=== PATIENT | female | born 1955 | race Caucasian/White ===

== ENCOUNTER 2019-01-19 16:19 | Observation (INO) ==
--- NOTE | 2019-01-19 17:12 | Emergency Department Note ---
Disposition Clinical Impression: Hypertensive urgency Disposition: Admitted As Inpatient Condition: Fair Referrals: Ross Dorsey MD [Primary Care Provider] - Forms: ED Satisfaction Letter Time of Disposition: 20:18 General Adult HPI - General Chief complaint: ED Neuro Symptoms/Deficit Stated complaint: HTN, migraine, face and arm numbness Time Seen by Provider: 01/19/19 16:53 Source: patient Limitations: no limitations - History of Present Illness HPI Narrative: Ms. Hodges is 63-year-old female with past medical history of hypothyroidism, hypertension, seasonal allergy who presented to ED complaining of left-sided headache that onset yesterday with photophobia. She has previous history of migraines and has not had a migraine in years. This morning her blood pressure was 130/90 and later in the afternoon she started having neuropathy of her entire face as well as right arm and stabbing pain to her scapula. She states that her blood pressure at work was 190/101. For the headache she took ibupro fen without any relief. She also reports her blood pressure is normally within prior to today and recently has been under a lot of stress at work and believes her blood pressure might be elevated due to that. She denies any chest pain or shortness of breath at this moment or at the time of these symptoms. Currently she does not have any neuropathy or pain to her scapula and it is resolved. She does continue to have right-sided headache. She denies any blurry vision associated with the headache. She denies fever, chills, nausea, emesis, abdominal pain, back pain, lower extremity edema or difficulty with gait. Pain Scale: 2 - Related Data Allergies Allergy/AdvReac Type Severity Reaction Status Date / Time codeine Allergy Mild Hives Verified 01/19/19 20:11 latex Allergy Mild Hives Verified 01/19/19 20:11 Constitutional: Denies: fever, chills, weakness Eyes: Denies: eye pain, vision change ENT ED: Denies: ear pain, throat pain, congestion, dysphagia Cardiovascular: Denies: chest pain, palpitations, dyspnea on exertion, orthopnea Respiratory: Denies: cough, dyspnea, wheezes Gastrointestinal: Denies: abdominal pain, nausea, vomiting Genitourinary: Denies: dysuria, frequency, hematuria Musculoskeletal: Denies: back pain Integumentary: Denies: rash, abrasion, lesions Neurological: Reports: headache (left sided), numbness (of face), paresthesias (right arm). Denies: abnormal gait, vertigo Past Medical History - Past Medical History Medical history: Reports: asthma, hyperlipidemia, hypertension Psychiatric history: Reports: no psych history - Social History Smoking Status: Former smoker Smokeless Tobacco Status: No Alcohol use: Reports: none Drug use: Reports: none Physical Exam - General Limitations: no limitations General appearance: alert, in no apparent distress - Head Head exam: atraumatic, normocephalic - Eye Eye exam: Present: normal appearance, EOMI. Absent: scleral icterus, conjunctival injection - ENT ENT exam: normal exam, normal oropharynx, mucous membranes moist - Neck Neck exam: Present: normal inspection, full ROM, trachea midline - Chest Chest inspection: Present: normal inspection, symmetric chest wall rise. Absent: tenderness - Respiratory Respiratory exam: Present: normal lung sounds bilaterally. Absent: respiratory distress, wheezes - Cardiovascular Cardiovascular exam: Present: regular rate, normal rhythm, +S1, +S2 - Abdominal Exam Abdominal exam: Present: soft, Non-Tender, normal bowel sounds. Absent: distention, guarding, rigidity - Extremities Exam Extremities exam: Present: normal inspection, full ROM. Absent: tenderness - Back Exam Back exam: Present: normal inspection, full ROM, other (no scapular tenderness ). Absent: tenderness - Neurological Exam Neurological exam: Present: alert, oriented X3, CN II-XII intact. Absent: motor sensory deficit - Psychiatric Psychiatric exam: Present: normal affect, anxious - Skin Skin exam: Present: warm, dry, intact Course - Reevaluation(s) Reevaluation #1: Continued to have elevated blood pressure subsequently received enalapril. Denies any chest pain. Neuropathy has resolved. She will be admitted to the hospital for further workup as she continues to have hypertensive urgency additionally may require further cardiac workup. Time: 19:57 Vital Signs Temperature 98.1 F 01/19/19 16:38 Pulse Rate 69 01/19/19 16:38 Respiratory Rate 18 01/19/19 16:38 Blood Pressure 219/99 01/19/19 16:38 O2 Sat by Pulse Oximetry 98 01/19/19 16:38 Temperature 98.1 F 01/19/19 16:38 Pulse Rate 67 01/19/19 19:40 Respiratory Rate 18 01/19/19 19:40 Blood Pressure 182/96 01/19/19 19:40 O2 Sat by Pulse Oximetry 100 01/19/19 19:40 Oxygen Delivery Oxygen Delivery Room Air Medical Decision Making - Lab Data Result diagrams: 01/19/19 17:10 01/19/19 17:10 Lab Results 01/19/19 01/19/19 Range/Units 17:10 17:10 WBC 8.6 (4.3-11.1) K/mcL RBC 5.39 H (3.82-4.97) M/mcL Hgb 15.7 H (11.5-15.4) g/dL Hct 47.8 H (35.3-44.9) % MCV 88.7 (83.0-100.0) fL MCH 29.1 (28.0-33.3) pg MCHC 32.8 (31.6-35.5) g/dL RDW 12.3 (11.5-14.5) % Plt Count 246 (140-400) K/mcL MPV 10.8 (9.4-12.4) fL Immature Gran % 0.2 (0-4) % Seg Neutrophils % 49.0 % Lymphocytes % 38.2 % Monocytes % 8.4 % Eosinophils % 3.7 % Basophils % 0.5 % Neutrophils # 4.2 (1.6-8.9) K/mcL Lymphocytes # 3.3 (0.6-4.6) K/mcL Monocytes # 0.7 (0.0-1.3) K/mcL Eosinophils # 0.3 (0.0-0.6) K/mcL Basophils # 0.0 (0.0-0.2) K/mcL Sodium 137 (136-145) mEq/L Potassium 3.4 L (3.5-5.1) mEq/L Chloride 104 (98-107) mEq/L Carbon Dioxide 25 (23-29) mEq/L BUN 14 (8-23) mg/dL Creatinine 0.79 (0.60-1.20) mg/dL Est GFR ( Amer) > 60 (> 60) Est GFR (Non-Af Amer) > 60 (> 60) BUN/Creatinine Ratio 18 (6-26) Glucose 93 (70-105) mg/dL Calculated Osmolality 284 (280-300) Calcium 9.5 (8.6-10.3) mg/dL Magnesium 2.1 (1.6-2.6) mg/dL Troponin I < 0.03 (< 0.04) ng/mL
[2019-01-19 17:36] LABS: Basophils % 0.5 %; Eosinophils # 0.3 K/mcL (0.0-0.6); Eosinophils % 3.7 %; Hematocrit 47.8 % (35.3-44.9); Hemoglobin 15.7 g/dL (11.5-15.4); Immature Granulocytes % 0.2 % (0-4); Lymphocytes # 3.3 K/mcL (0.6-4.6); Lymphocytes % 38.2 %; Mean Corpuscular HGB Conc 32.8 g/dL (31.6-35.5); Mean Corpuscular Hemoglobin 29.1 pg (28.0-33.3); Mean Corpuscular Volume 88.7 fL (83.0-100.0); Mean Platelet Volume 10.8 fL (9.4-12.4); Monocytes # 0.7 K/mcL (0.0-1.3); Monocytes % 8.4 %; Neutrophils # 4.2 K/mcL (1.6-8.9); Platelet Count 246 K/mcL (140-400); Red Blood Count 5.39 M/mcL (3.82-4.97); Red Cell Distribution Width 12.3 % (11.5-14.5); White Blood Count 8.6 K/mcL (4.3-11.1)
[2019-01-19 17:57] LABS: BUN/Creatinine Ratio 18 (6-26); Blood Urea Nitrogen 14 mg/dL (8-23); Calcium 9.5 mg/dL (8.6-10.3); Carbon Dioxide 25 mEq/L (23-29); Chloride 104 mEq/L (98-107); Glucose 93 mg/dL (70-105); Magnesium 2.1 mg/dL (1.6-2.6); Osmolality,Calculated 284 (280-300); Potassium 3.4 mEq/L (3.5-5.1); Sodium 137 mEq/L (136-145); eGFR For African Americans > 60 (> 60); eGFR For Non-African Americans > 60 (> 60)
[2019-01-19 17:58] LABS: Troponin I < 0.03 ng/mL (< 0.04)
[2019-01-19] MEDS ORDERED: Prochlorperazine 10 MG/2 ML VIAL IVP ONE (19:26)
[2019-01-19] MEDS ORDERED: Aspirin 325 MG TABLET PO ONE (19:38)
--- NOTE | 2019-01-19 20:15 | Emergency Department Note ---
Disposition Clinical Impression: Hypertensive urgency, Headache, Chest pain Disposition: Admitted As Inpatient Condition: Fair Referrals: Ross Dorsey MD [Primary Care Provider] - Forms: ED Satisfaction Letter Time of Disposition: 20:15 General Adult HPI - General Chief complaint: ED Neuro Symptoms/Deficit Stated complaint: HTN, migraine, face and arm numbness Time Seen by Provider: 01/19/19 16:53 Source: patient Limitations: no limitations - History of Present Illness Pain Scale: 2 - Related Data Previous Rx's Medication Instructions Recorded Naproxen [Naprosyn] 500 mg PO BID PRN #20 tablet 07/02/17 Allergies Allergy/AdvReac Type Severity Reaction Status Date / Time codeine Allergy Hives Verified 07/02/17 08:26 Constitutional: Denies: fever, chills, weakness Eyes: Denies: eye pain, vision change ENT ED: Denies: ear pain, throat pain, congestion, dysphagia Cardiovascular: Denies: chest pain, palpitations, dyspnea on exertion, orthopnea Respiratory: Denies: cough, dyspnea, wheezes Gastrointestinal: Denies: abdominal pain, nausea, vomiting Genitourinary: Denies: dysuria, frequency, hematuria Musculoskeletal: Denies: back pain Integumentary: Denies: rash, abrasion, lesions Neurological: Reports: headache (left sided), numbness (of face), paresthesias (right arm). Denies: abnormal gait, vertigo Past Medical History - Past Medical History Medical history: Reports: asthma, hyperlipidemia, hypertension Psychiatric history: Reports: no psych history - Social History Smoking Status: Former smoker Smokeless Tobacco Status: No Alcohol use: Reports: none Drug use: Reports: none Physical Exam - General Limitations: no limitations General appearance: alert, in no apparent distress Course Vital Signs Temperature 98.1 F 01/19/19 16:38 Pulse Rate 69 01/19/19 16:38 Respiratory Rate 18 01/19/19 16:38 Blood Pressure 219/99 01/19/19 16:38 O2 Sat by Pulse Oximetry 98 01/19/19 16:38 Temperature 98.1 F 01/19/19 16:38 Pulse Rate 67 01/19/19 19:40 Respiratory Rate 18 01/19/19 19:40 Blood Pressure 182/96 01/19/19 19:40 O2 Sat by Pulse Oximetry 100 01/19/19 19:40 Oxygen Delivery Oxygen Delivery Room Air Medical Decision Making - Lab Data Result diagrams: 01/19/19 17:10 01/19/19 17:10 Lab Results 01/19/19 01/19/19 Range/Units 17:10 17:10 WBC 8.6 (4.3-11.1) K/mcL RBC 5.39 H (3.82-4.97) M/mcL Hgb 15.7 H (11.5-15.4) g/dL Hct 47.8 H (35.3-44.9) % MCV 88.7 (83.0-100.0) fL MCH 29.1 (28.0-33.3) pg MCHC 32.8 (31.6-35.5) g/dL RDW 12.3 (11.5-14.5) % Plt Count 246 (140-400) K/mcL MPV 10.8 (9.4-12.4) fL Immature Gran % 0.2 (0-4) % Seg Neutrophils % 49.0 % Lymphocytes % 38.2 % Monocytes % 8.4 % Eosinophils % 3.7 % Basophils % 0.5 % Neutrophils # 4.2 (1.6-8.9) K/mcL Lymphocytes # 3.3 (0.6-4.6) K/mcL Monocytes # 0.7 (0.0-1.3) K/mcL Eosinophils # 0.3 (0.0-0.6) K/mcL Basophils # 0.0 (0.0-0.2) K/mcL Sodium 137 (136-145) mEq/L Potassium 3.4 L (3.5-5.1) mEq/L Chloride 104 (98-107) mEq/L Carbon Dioxide 25 (23-29) mEq/L BUN 14 (8-23) mg/dL Creatinine 0.79 (0.60-1.20) mg/dL Est GFR ( Amer) > 60 (> 60) Est GFR (Non-Af Amer) > 60 (> 60) BUN/Creatinine Ratio 18 (6-26) Glucose 93 (70-105) mg/dL Calculated Osmolality 284 (280-300) Calcium 9.5 (8.6-10.3) mg/dL Magnesium 2.1 (1.6-2.6) mg/dL Troponin I < 0.03 (< 0.04) ng/mL Attestation Statement - Attestation Attestation: I have seen this patient with the resident physician, I have personally evaluate d this patient. I had reviewed the chart and document dictation by the resident physician and aM in agreement with the information documented by the resident physician. Please see documentation by the resident physician for complete chart including past medical history, family medical history, review of systems, current history and physical and laboratory and imaging studies. I was present for all procedures, provided direct supervision for all procedures, was present for the entirety of all procedures and provided direct guidance during the procedures. Please see documentation by the resident physician for any procedures performed. I have reviewed all interpretations of EKGs, and reviewed all EKGs performed on patient's as well. I have also reviewed reports of imaging as provided by radiology. Patient presented emergency room with chief complaint of hypertension chest pain headache. She states that yesterday she had gradual onset of left-sided headache reminder of a migraine that she used to get long time ago she states it been 10-20 years since she had a migraine but this feels very much like that from what she can remember unilateral gradual onset photophobia. She took some Tylenol and Motrin, states that seemed to get a little bit better she went to bed last night, prior to going to bed she checked her blood pressure and was elevated when she woke up in the morning she states that her headache was much better, she states she checked her blood pressure and it was down to 135/80, reports that she then went to work while she was at work she again started having gr adual onset of left-sided headache, photophobia, no sudden onset of exploding headache. The patient states she also then started having heaviness in the center of her chest and some tingling down her right arm, states she had a little bit of discomfort in between her shoulder blades start feel little dizzy and just did not feel right. She checked her blood pressure several times at work and was continuously in the 190s which is unusual for her she does take 3 different blood pressure medications and is relieved just with taking these. She states that she has never had blood pressures like this. No history of cardiac disease for her. There is family history of cardiac disease. On physical examination she has no focal neurologic findings she is alert oriented 3 sitting in bed nontoxic in appearance, she has strength sensation and reflexes cranial nerves speech and gait. No pass point no pronator drift, normal rapid alternating movements. Pupils are normal. Lungs are clear heart is regular abdomen is soft and nontender there are equal pulses in all 4 extremities. She has no current chest pain, no pain in between her shoulder blade and no tingling in her arm and now she does still have a headache. Her blood pressures were initially elevated although did spontaneously decrease to 158 systolic but then again began to increase. She then had some slight worsening of her he adache, and initially she did not want anything for her headache but then requested some medication. She was given Compazine and Benadryl for her headache. She had persistently elevated blood pressures and was given IV enalaprilat 2.[address] showed no acute intracranial pathology, she had no sudden onset of exploding headache no neurologic symptoms, gradual onset in nature, no neurologic symptoms and a negative head CT within 6 hours of the onset her headache today. Do not feel there is any indication for lumbar puncture. She has no current chest pain, she did have some pain between her shoulder blades. Chest x-ray shows no widened mediastinum she has no current pain no tearing or ripping sensation equal blood pressures and equal pulses in both arms do not suspect aortic dissection. Basic laboratory studies were all within acceptable limits she has multiple risk factors, for cardiac disease she will be admitted for further evaluation and management.
[2019-01-19 20:28] LABS: Bilirubin,Urine Negative (Negative); Blood,Urine Negative (Negative); Clarity,Urine Clear (Clear); Color,Urine Yellow (Yellow); Glucose,Urine (UA) Normal (Normal); Ketones,Urine Negative (Negative); Leukocyte Esterase,Urine Negative (Negative); Nitrite,Urine Negative (Negative); PH,Urine 7.5 pH Units (5.0-8.0); Protein,Urine Negative (Neg-Trace); Specific Gravity,Urine 1.011 (1.010-1.025); Urobilinogen,Urine Normal (Normal)
[2019-01-19] MEDS ORDERED: *HR* LORazepam 0.5 MG TABLET PO PRN (20:53)
--- NOTE | 2019-01-19 21:09 | Internal Med History&Physical ---
Date of Encounter: 01/19/19 Time of Encounter: 21:08 Internal Medicine - H&P: HPI Chief complaint: chest pain Admitted From: Home Plans for Post Hospital Care: Home History of present illness: Devi Hodges is a 63-year-old woman with hypertension and hyperlipidemia who is brought into the emergency room after developing headache and elevated blood pressure while at work. She says that last night she felt some headache but it resolved and then today at work her headache worsened at which time her blood pressure was checked and found to be 185/115. A repeat done was 190/101. At the same time she started feeling chest pressure with shortness of breath and paresthesias in her right arm and neck. At this time they brought her to the emergency room for evaluation shows found to have a blood pressure of 204/97. She received a total of 5 mg of enalaprilat, 12.5 mg diphenhydramine and 100 mg losartan. Lab work done was grossly unremarkable. Her symptoms have since improved and she is admitted for observation. At this time she reports feeling well. She says that her blood pressure has never been this high and she checks it regularly at home and at work. She reports adherence to her antihypertensive therapy. She denies an active smoking history. No history of heart disease in the past; she says she underwent a cardiac catheter over 8 years ago which was done for chest pain but was found to not have any anomalies. Vitals: Reviewed General: Well-appearing, sitting comfortably in bed in no acute distress. Skin: Warm and supple. HEENT: Moist mucous membranes. No conjunctivae pallor. Neck: No lymphadenopathy. No JVD. No carotid bruits. No palpable thyroid. Chest: Normal thoracic expansion. Normal breath sounds. Clear to auscultation. Heart: Normal S1 & S2; rhythmic. No rubs or murmurs. Abdomen: Non-distended, soft and non-tender to palpation. No peritoneal reaction. Extremities: No clubbing, cyanosis or edema. No calf tenderness. Normal distal pulses. Neurological: Awake, alert and oriented to person, place and time. No focal deficits. Psych: Affect appropriate. Assessment/Plan 1. Hypertensive crisis: She developed a significant elevation in her blood pressure which is greater than her norm and developed symptoms that were concerning for end organ strain as evidenced by the chest pressure and headache but no signs of actual damage. Her symptoms have abated with lowering her BP. Will observe her vitals overnight and resume her home medications in the morning. 2. Chest pain: EKG as reviewed by me shows signs of LVH and some ST depressions in the laterals leads. Suspect secondary to poorly controlled hypertension. Given the nature of her symptoms today, will have her undergo a stress test in the morning. 3. Prediabetes: Counseled and educated on therapeutic lifestyle changes for weight loss as it will be of benefit in controlling comorbidities. Compliance Director evaluation advised. 4. Hypothyroidism: Will check A1C and continue thyroid supplement. Past Med Surg Social Fam HX - Past Medical History Medical history: asthma, hyperlipidemia, hypertension Additional medical history: osteopenia Psychiatric history: no psych history - Past Surgical History Additional surgical history: rotator cuff. mass removal L breast - Social History Smoking Status: Former smoker Smokeless Tobacco Status: No Alcohol use: none Drug use: none Internal Medicine - H&P: Meds Albuterol Sulfate [Albuterol Inhaler] 2 puff IH Q4H PRN 01/19/19 [History] Aspirin Enteric Coated [Aspirin EC] 81 mg PO DAILY 01/19/19 [History] Citalopram [CeleXA] 20 mg PO HS 01/19/19 [History] Cyanocobalamin (Vitamin B-12) [Vitamin B12] 1,000 mcg PO DAILY 01/19/19 [Histo ry] Fexofenadine HCl 180 mg PO DAILY 01/19/19 [History] LORazepam [Ativan] 0.5 mg PO BID PRN 01/19/19 [History] Losartan Potassium [Cozaar] 100 mg PO HS 01/19/19 [History] Metoprolol Succinate [Toprol Xl] 100 mg PO DAILY 01/19/19 [History] Progesterone,Micronized [Prometrium] 100 mg PO QPM 01/19/19 [History] Thyroid,Pork [Tunnel Elastic Operator Chainstitch Thyroid] 30 mg PO DAILY@0700 01/19/19 [History] amLODIPine [Norvasc] 2.5 mg PO DAILY 01/19/19 [History] Allergy/AdvReac Type Severity Reaction Status Date / Time codeine Allergy Mild Hives Verified 01/19/19 20:11 latex Allergy Mild Hives Verified 01/19/19 20:11 All Systems PM: A 10-system review of systems was performed and is negative for pertinent findings except as documented above in the HPI. Family history reviewed and found non-contributory. - Constitutional Vitals: Temp Pulse Resp BP Pulse Ox 98.1 F 61 18 129/68 96 01/19/19 16:38 01/19/19 20:58 01/19/19 20:58 01/19/19 20:58 01/19/19 20:58 Exam: . Internal Med - H&P Results - Labs CBC & Chem 7: 01/19/19 17:10 01/19/19 17:10 Labs: Short CBC 01/19/19 Range/Units 17:10 WBC 8.6 (4.3-11.1) K/mcL Hgb 15.7 H (11.5-15.4) g/dL Hct 47.8 H (35.3-44.9) % Plt Count 246 (140-400) K/mcL Neutrophils # 4.2 (1.6-8.9) K/mcL BMP 01/19/19 17:10 Sodium 137 Potassium 3.4 L Chloride 104 Carbon Dioxide 25 BUN 14 Creatinine 0.79 Glucose 93 Calcium 9.5 Cardiac Enzymes 01/19/19 Range/Units 17:10 Troponin I < 0.03 (< 0.04) ng/mL Urine 01/19/19 Range/Units 20:10 Urine Color Yellow (Yellow) Urine Clarity Clear (Clear) Urine pH 7.5 (5.0-8.0) pH Units Ur Specific [place] 1.011 (1.010-1.025) Urine Protein Negative (Neg-Trace) mg/dL Urine Glucose (UA) Normal (Normal) mg/dL - Impressions ITS Impressions Chest X-Ray 01/19/19 17:19 IMPRESSION: No acute abnormality identified. D/ / Jamin Isidro MD / Jamin Isidro MD Interpreting Provider: Jamin Isidro MD Head CT 01/19/19 17:19 IMPRESSION: No acute intracranial abnormality. D/ / Liam Wing / Liam Wing Interpreting Provider: Liam Wing - Time Spent With Patient Total time spent is greater than 50% in coordination of care (as documented) at patient's floor/unit and/or counseling patient: Greater than 35 minutes
[2019-01-20] MEDS ORDERED: Acetaminophen 325 MG TABLET PO ONE (05:07)
[2019-01-20] MEDS ORDERED: *HR* Heparin 5,000 UNIT/ML VIAL SQ SCH (06:00)
[2019-01-20] MEDS ORDERED: Regadenoson 0.4 MG/5 ML SYRINGE IVP ONE (06:05)
[2019-01-20 06:30] LABS: Heparin anti-factor XA UFH 0.08 IU/mL (0.30-0.70); INR 1.1; Prothrombin Time 11.9 Seconds (9.4-12.1)
[2019-01-20 06:45] LABS: Troponin I < 0.03 ng/mL (< 0.04)
[2019-01-20] MEDS ORDERED: Thyroid (Amour) 30 MG TABLET PO SCH (07:00)
[2019-01-20 08:24] LABS: Estimated Average Glucose 114 mg/dl; Hemoglobin A1C 5.6 %
[2019-01-20] MEDS ORDERED: Loratadine 10 MG TABLET PO SCH (09:00)
[2019-01-20] MEDS ORDERED: Metoprolol XL (24 HR) Succ 50 MG TAB.ER.24H PO SCH (09:00)
[2019-01-20] MEDS ORDERED: Cyanocobalamin (B-12) 1,000 MCG TABLET PO SCH (09:00)
[2019-01-20] MEDS ORDERED: amLODIPine 5 MG TABLET PO SCH (09:00)
[2019-01-20] MEDS ORDERED: Aspirin Enteric Coated 81 MG Tablet PO SCH (09:00)
[2019-01-20] MEDS ORDERED: Isovue-370 500 ML BOTTLE IVP ONE (11:12)
[2019-01-20] MEDS ORDERED: Acetaminophen 325 MG TABLET PO PRN (14:25)
[2019-01-20] MEDS ORDERED: amLODIPine 5 MG TABLET PO ONE (14:27)
--- NOTE | 2019-01-20 14:44 | Electrocardiograph Report ---
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
--- NOTE | 2019-01-20 15:42 | Internal Med Progress Note ---
Hospitalist Progress Note - Encounter Date of Encounter: 01/20/19 Time of Encounter: 15:00 - Subjective Interval History: Came in for elevated blood pressure and chest pain - Exam Vitals: Temp Pulse Resp BP Pulse Ox 98.0 F 63 18 177/92 95 01/20/19 11:32 01/20/19 11:32 01/20/19 11:32 01/20/19 11:32 01/20/19 11:32 Exam: General appearance: Present: A&O X 3, no acute distress Head exam: Present: normocephalic Respiratory exam: Present: CTAB. Absent: accessory muscle use, rales, rhonchi, wheezes Cardiovascular exam: Present: RRR, +S1, +S2. Absent: diastolic murmur, gallop, rubs, systolic murmur GI/Abdominal exam: Soft, NT, ND, +BS Extremities exam: Has left lower extremity swelling and pain Neurological exam: Present: alert, oriented X3, no focal deficits. Absent: altered - Assessment and Plan (1) Hypertensive urgency Current Visit: Yes Status: Acute Assessment and Plan: Came in with headache, chest pain and elevated blood presure in the 200s Now controlled. Stress test negative and CTA negative for aortic dissection Resume home meds. Increase amlodipine (2) Chest pain Current Visit: Yes Status: Acute Assessment and Plan: Stress test negative (3) Headache Current Visit: Yes Status: Acute Assessment and Plan: Tylenol prn (4) Left leg swelling Current Visit: Yes Status: Acute Assessment and Plan: Has left leg swelling and intermittent pain and family history of blood clots Will obtain doppler lower extremity to r/o DVT DVT Prophylaxis: Heparin sc - Time Spent with Patient Total time spent is greater than 50% in coordination of care (as documented) at patient's floor/unit and/or counseling patient: Internal Medicine: Result - Labs CBC & Chem 7: 01/19/19 17:10 01/20/19 06:12 Labs: Short CBC 01/19/19 Range/Units 17:10 WBC 8.6 (4.3-11.1) K/mcL Hgb 15.7 H (11.5-15.4) g/dL Hct 47.8 H (35.3-44.9) % Plt Count 246 (140-400) K/mcL Neutrophils # 4.2 (1.6-8.9) K/mcL BMP 01/19/19 01/20/19 17:10 06:12 Sodium 137 Potassium 3.4 L 4.0 Chloride 104 Carbon Dioxide 25 BUN 14 Creatinine 0.79 Glucose 93 Calcium 9.5 Cardiac Enzymes 01/19/19 01/20/19 Range/Units 17:10 06:12 Troponin I < 0.03 < 0.03 (< 0.04) ng/mL Urine 01/19/19 Range/Units 20:10 Urine Color Yellow (Yellow) Urine Clarity Clear (Clear) Urine pH 7.5 (5.0-8.0) pH Units Ur Specific [place] 1.011 (1.010-1.025) Urine Protein Negative (Neg-Trace) mg/dL Urine Glucose (UA) Normal (Normal) mg/dL - ABG Interpretation ABG results: PT/INR, D-dimer PT 11.9 Seconds (9.4-12.1) 01/20/19 06:12 - Impressions Impressions Chest X-Ray 01/19/19 17:19 IMPRESSION: No acute abnormality identified. D/ / Jamin Isidro MD / Jamin Isidro MD Interpreting Provider: Jamin Isidro MD Head CT 01/19/19 17:19 IMPRESSION: No acute intracranial abnormality. D/ / Liam Wing / Liam Wing Interpreting Provider: Liam Wing Chest CTA 01/20/19 13:00 IMPRESSION: No evidence of pulmonary embolism or acute pulmonary abnormality. Small amount of nonspecific mediastinal fluid. Moderate hiatal hernia. D/ / 01/20/2019 13:35:31 Florecita Nugent MD / vasu Interpreting Provider: Florecita Nugent MD Consult Discharge Plan - Plan Referrals: Ross Dorsey MD [Primary Care Provider] -
--- NOTE | 2019-01-20 16:46 | Discharge Summary ---
Date of Encounter: 01/20/19 Time of Encounter: 16:00 - Discharge Diagnosis (1) Hypertensive urgency Priority: Primary Status: Acute Assessment and Plan: 63-year-old woman with hypertension and hyperlipidemia who is brought into the emergency room after developing headache and elevated blood pressure while at work. She says that last night she felt some headache but it resolved and then today at work her headache worsened at which time her blood pressure was checked and found to be 185/115. A repeat done was 190/101. At the same time she started feeling chest pressure with shortness of breath and paresthesias in her right arm and neck. At this time they brought her to the emergency room for evaluation shows found to have a blood pressure of 204/97. She received a total of 5 mg of enalaprilat, 12.5 mg diphenhydramine and 100 mg losartan She came in with headache, chest pain and elevated blood presure in the 200s. Stress test negative and CTA negative for aortic dissection. She had a doppler of her left leg done to r/o dvt which was also negative as she had pain and unilateral left lower extremity swelling. Her amlodipine was increased on discharge and she was advised to f/u with her PCP (2) Chest pain Priority: Primary Status: Acute Qualifiers: Qualified Code(s): R07.9 - Chest pain, unspecified (3) Headache Priority: Primary Status: Acute Qualifiers: Qualified Code(s): R51 - Headache (4) Left leg swelling Priority: Primary Status: Acute Hospital course: Ms. Hodges is a 64 year old female - Time Spent with Patient Total time spent providing and/or coordinating discharge services: - Discharge Medications Prescriptions: Continued Losartan Potassium [Cozaar] 100 mg PO HS Progesterone,Micronized [Prometrium] 100 mg PO QPM Metoprolol Succinate [Toprol Xl] 100 mg PO DAILY Thyroid,Pork [Procurement Manager Thyroid] 30 mg PO DAILY@0700 Albuterol Sulfate [Albuterol Inhaler] 2 puff IH Q4H PRN PRN Reason: Shortness Of Breath/Wheezing Citalopram [CeleXA] 20 mg PO HS Aspirin Enteric Coated [Aspirin EC] 81 mg PO DAILY Fexofenadine HCl 180 mg PO DAILY Cyanocobalamin (Vitamin B-12) [Vitamin B12] 1,000 mcg PO DAILY LORazepam [Ativan] 0.5 mg PO BID PRN PRN Reason: Anxiety Changed amLODIPine [Norvasc] 5 mg PO DAILY 30 Days #30 tablet Home Medications: Albuterol Sulfate [Albuterol Inhaler] 2 puff IH Q4H PRN 01/19/19 [History] Aspirin Enteric Coated [Aspirin EC] 81 mg PO DAILY 01/19/19 [History] Citalopram [CeleXA] 20 mg PO HS 01/19/19 [History] Cyanocobalamin (Vitamin B-12) [Vitamin B12] 1,000 mcg PO DAILY 01/19/19 [History] Fexofenadine HCl 180 mg PO DAILY 01/19/19 [History] LORazepam [Ativan] 0.5 mg PO BID PRN 01/19/19 [History] Losartan Potassium [Cozaar] 100 mg PO HS 01/19/19 [History] Metoprolol Succinate [Toprol Xl] 100 mg PO DAILY 01/19/19 [History] Progesterone,Micronized [Prometrium] 100 mg PO QPM 01/19/19 [History] Thyroid,Pork [Procurement Manager Thyroid] 30 mg PO DAILY@0700 01/19/19 [History] amLODIPine [Norvasc] 5 mg PO DAILY 30 Days #30 tablet 01/20/19 [Rx] Allergies/Adverse Reactions: Allergy/AdvReac Type Severity Reaction Status Date / Time codeine Allergy Mild Hives Verified 01/19/19 20:11 latex Allergy Mild Hives Verified 01/19/19 20:11 Date of admission: 01/19/19 21:48 Primary care physician: Ross Dorsey MD - Constitutional Vitals: Temp Pulse Resp BP Pulse Ox 98.0 F 63 18 177/92 95 01/20/19 11:32 01/20/19 11:32 01/20/19 11:32 01/20/19 11:32 01/20/19 11:32 Exam: General appearance: Present: A&O X 3, no acute distress Head exam: Present: normocephalic Respiratory exam: Present: CTAB. Absent: accessory muscle use, rales, rhonchi, wheezes Cardiovascular exam: Present: RRR, +S1, +S2. Absent: diastolic murmur, gallop, rubs, systolic murmur GI/Abdominal exam: Soft, NT, ND, +BS Extremities exam: Has left lower extremity swelling and pain Neurological exam: Present: alert, oriented X3, no focal deficits. Absent: altered - Patient Status Disposition: Home, Self-Care Condition: Fair - Discharge Instructions Instructions: Amlodipine (By mouth) Follow Up With: Ross Dorsey MD [Primary Care Provider] -
[2019-01-20 17:19] VITALS: BP 167/80
[2019-01-20] MEDS ORDERED: PROGESTERONE 100 MG PO SCH (18:00)
== END 2019-01-20 17:17 | disposition home or self-care (01) ==
LOC: EMEROOARM 16:19 → 2ANU 16:19
PROVIDERS: ADMIT Internal Medicine; ATTEND Internal Medicine